=== PATIENT | female | born 1950 | race African-American/Black ===

== ENCOUNTER 2023-05-10 08:56 | Observation (INO) | payer OTHER ==
[2023-05-10 10:24] LABS: BASO % 0.8 % (0-2.0); EOS % 2.4 % (0-4.5); HEMATOCRIT 34.9 % (32.4-45.2); HEMOGLOBIN 11.7 GM/dL (10.7-15.3); LYMPH % 20.2 % (8-40); MCH 29.8 pg (25.7-33.7); MCHC 33.4 g/dl (32.0-36.0); MEAN CELL VOLUME 89.2 fl (80-96); MEAN PLT VOLUME 7.4 fl (7.5-11.1); MONO % 11.8 % (3.8-10.2); NEUT % 64.8 % (42.8-82.8); PLATELET COUNT 224 10^3/uL (134-434); RBC 3.92 M/mm3 (3.60-5.2); RDW 13.4 % (11.6-15.6); WHITE BLOOD COUNT 6.9 K/mm3 (4.0-10.0)
[2023-05-10 10:29] LABS: INR 0.99 (0.83-1.09); PROTHROMBIN TIME (PATIENT) 11.5 SEC (9.7-13.0)
[2023-05-10 10:33] LABS: ACTIVATED PTT 26.5 SECONDS (25.2-36.5)
[2023-05-10 10:40] LABS: CHLORIDE 114 mmol/L (98-107); POTASSIUM 4.9 mmol/L (3.5-5.1); SODIUM 144 mmol/L (136-145)
[2023-05-10 10:42] LABS: ANION GAP 5 MMOL/L (8-16); CALCIUM 8.7 mg/dL (8.5-10.1); CO2 25 mmol/L (21-32); GLUCOSE,RANDOM 151 mg/dL (74-106)
[2023-05-10 10:43] LABS: ALBUMIN 3.4 g/dl (3.4-5.0); BLOOD UREA NITROGEN 14.5 mg/dL (7-18); MAGNESIUM 1.5 mg/dL (1.8-2.4)
[2023-05-10 10:45] LABS: SGPT/ALT 19 U/L (13-61)
[2023-05-10 10:46] LABS: SGOT/AST 18 U/L (15-37)
[2023-05-10 10:47] LABS: BILIRUBIN,TOTAL 0.7 mg/dL (0.2-1); TOT PROT 6.5 g/dl (6.4-8.2)
[2023-05-10 10:48] LABS: ALK PHOS 70 U/L (45-117)
[2023-05-10] MEDS ORDERED: MAGNESIUM SULFATE IN WATER 2 GM/50 ML IVPB IVPB ONE ×2 (11:13→11:22)
[2023-05-10] MEDS ORDERED: ACETAMINOPHEN 325 MG TABLET (FP) PO PRN (12:53)
[2023-05-10 13:28] LABS: CHOLESTEROL 147 mg/dL (50-200); LDL CHOLESTEROL (ONLY SJRH) 74 mg/dL (5-100)
[2023-05-10 13:32] LABS: HDL CHOLESTEROL 61 mg/dL (40-60)
[2023-05-10] MEDS: INSULIN SLIDING SCALE (NOVOLOG) 1 VIAL SQ SCH ×2 (16:37→22:33)
[2023-05-10 16:45] LABS: METHADONE, UR NEGATIVE (NEGATIVE); PH,URINE 5.5 (5.0-8.0); URINE AMPHETAMINES NEGATIVE (NEGATIVE); URINE APPEARANCE CLEAR; URINE BILIRUBIN NEGATIVE (NEGATIVE); URINE COLOR YELLOW; URINE GLUCOSE (UA) NEGATIVE (NEGATIVE); URINE KETONE NEGATIVE (NEGATIVE); URINE LEUK ESTERASE NEGATIVE (NEGATIVE); URINE NITRITE NEGATIVE (NEGATIVE); URINE PROTEIN NEGATIVE (NEGATIVE); URINE UROBILINOGEN 0.2 mg/dL (0.2-1.0)
[2023-05-10 16:46] LABS: OPIATES, URI NEGATIVE (NEGATIVE); PHENCYCLIDINE,URINE NEGATIVE (NEGATIVE); URINE BARBITURATES NEGATIVE (NEGATIVE)
[2023-05-10 16:49] LABS: COCAINE, UR NEGATIVE (NEGATIVE); URINE BENZODIAZEPINES NEGATIVE (NEGATIVE)
[2023-05-10 18:27] VITALS: BMI 27.3
[2023-05-11] MEDS: INSULIN SLIDING SCALE (NOVOLOG) 1 VIAL SQ SCH (06:56)
[2023-05-11 07:21] LABS: EOS % 3.5 % (0-4.5); LYMPH % 41.4 % (8-40); MCH 30.2 pg (25.7-33.7); MCHC 33.3 g/dl (32.0-36.0); MEAN CELL VOLUME 90.6 fl (80-96); MEAN PLT VOLUME 7.3 fl (7.5-11.1); MONO % 12.3 % (3.8-10.2); NEUT % 41.8 % (42.8-82.8); PLATELET COUNT 229 10^3/uL (134-434); RBC 3.65 M/mm3 (3.60-5.2); RDW 12.9 % (11.6-15.6); WHITE BLOOD COUNT 6.3 K/mm3 (4.0-10.0)
[2023-05-11 07:38] LABS: POTASSIUM 4.5 mmol/L (3.5-5.1)
[2023-05-11 07:43] LABS: CALCIUM 8.9 mg/dL (8.5-10.1)
[2023-05-11 07:44] LABS: ALBUMIN 3.2 g/dl (3.4-5.0); BLOOD UREA NITROGEN 14.6 mg/dL (7-18); MAGNESIUM 1.5 mg/dL (1.8-2.4)
[2023-05-11 07:46] LABS: PHOSPHOROUS 4.1 mg/dL (2.5-4.9)
[2023-05-11 07:47] LABS: CREATININE 0.8 mg/dL (0.55-1.3)
[2023-05-11 07:48] LABS: BILIRUBIN,TOTAL 0.8 mg/dL (0.2-1)
[2023-05-11] MEDS ORDERED: ENOXAPARIN NA (PORCINE) 40 MG/0.4 ML DISP.SYRIN SQ SCH (10:00)
[2023-05-11 11:29] VITALS: BP 121/67; PULSE 61; RESP 24; TEMP 98.5
== END 2023-05-11 14:01 | disposition home or self-care (01) ==
LOC: JER 08:56 → JERBED 12:40 → J4W 17:18
PROVIDERS: ADMIT Internal Medicine; ATTEND Internal Medicine
PROC: 3E023GC Introduction of Other Therapeutic Substance into Muscle, Percutaneous Approach (ICD-10-PCS; principal; 2023-05-10)
PROC: 3E033GC Introduction of Other Therapeutic Substance into Peripheral Vein, Percutaneous Approach (ICD-10-PCS; 2023-05-10)
DX: I45.2 Bifascicular block (principal); J06.9 Acute upper respiratory infection, unspecified; I10 Essential (primary) hypertension; E78.5 Hyperlipidemia, unspecified; E11.9 Type 2 diabetes mellitus without complications; R55 Syncope and collapse; F17.210 Nicotine dependence, cigarettes, uncomplicated; Z88.8 Allergy status to other drugs, medicaments and biological substances; Z90.79 Acquired absence of other genital organ(s)
CPT/HCPCS: 0241U-QW; 36415; 70450-TC; 71045-TC-FY; 72125-TC; 80053; 80061; 80307; 81003; 82962; 83036; 83735; 84100; 84484; 85025; 85610; 85730; 86850; 86900; 86901; 87040; 87086; 93005; 93010; 93306-TC; 93880-TC; 96365; 96372; 99285-25; G0378